=== PATIENT | female | born 1960 | race Asian ===

== ENCOUNTER 2021-04-10 07:33 | Outpatient (REF) | payer OTHER, SELFPAY ==
[2021-04-10 08:01] LABS: Binax Internal Control QC Valid; Binax Now Covid-19 Ag Negative (Negative)
== END 2021-04-10 07:34 | disposition home or self-care (01) ==
LOC: HO.LAB 07:33
PROVIDERS: Visit Provider Internal Medicine
DX: Z20.822 Contact with and (suspected) exposure to COVID-19 (principal)
CPT/HCPCS: C9803

== ENCOUNTER 2022-08-17 10:29 | Outpatient (REF) | payer OTHER, SELFPAY ==
[2022-08-17 13:16] LABS: MANUAL DIFF FLAG NO
[2022-08-17 13:20] LABS: Basophils Absolute Auto 0.1 X10*3/uL (0.0-0.2); Basophils Percent Auto 1.1 % (0-2); Eosinophils Absolute Auto 0.3 X10*3/uL (0.0-0.4); Eosinophils Percent Auto 5.1 % (0-4); Hematocrit 42.6 % (37.0-47.0); Hemoglobin 13.8 g/dl (12.0-16.0); Imm Gran Abs Auto 0.01 X10*3/uL (0.00-0.03); Imm Gran Pct Auto 0.2 % (0.0-0.4); Lymphocytes Absolute Auto 2.1 X10*3/uL (1.2-4.9); Lymphocytes Percent Auto 36.3 % (20-40); Mean Corpuscular HGB Conc 32.4 g/dl (31.0-35.0); Mean Corpuscular Hemoglobin 30.1 pg (27.0-33.0); Mean Platelet Volume 10.7 fL (9.4-12.3); Monocytes Absolute Auto 0.4 X10*3/uL (0.1-1.2); Monocytes Percent Auto 7.1 % (2-11); Neutrophils Absolute Auto 2.8 x10*3/uL (2.0-8.3); Neutrophils Percent Auto 50.2 % (45-73); Platelet Count 210 X10*3/uL (160-400); Red Blood Count 4.58 X10*6/uL (4.20-5.50); Red Cell Distribution Width 11.9 % (11.0-16.0); White Blood Count 5.7 X10*3/uL (4.8-10.8)
[2022-08-17 13:48] LABS: Anion Gap 11 (12-20); Blood Urea Nitrogen 20 mg/dL (9-16); Calcium 9.3 mg/dL (8.4-10.2); Carbon Dioxide 24 mmol/L (22-29); Chloride 108 mmol/L (96-108); Estimated Glomerular Filt Rate > 60; Glucose Random 83 mg/dL (60-115); Potassium 4.4 mmol/L (3.3-5.1); Sodium 139 mmol/L (135-145)
[2022-08-17 14:05] LABS: Free T4 (Free Thyroxine) 1.04 ng/dL (0.71-1.85); Thyroid Stimulating Hormone 0.31 uIU/mL (0.32-4.0); Vitamin D 25-OH Total 27.6 ng/mL (>30)
== END 2022-08-17 10:30 | disposition home or self-care (01) ==
LOC: HO.10HDL 10:29
PROVIDERS: Visit Provider Internal Medicine
DX: M85.80 Other specified disorders of bone density and structure, unspecified site (principal); R00.1 Bradycardia, unspecified; Z80.3 Family history of malignant neoplasm of breast
CPT/HCPCS: 36415; 80048; 82306; 84439; 84443; 85025

== ENCOUNTER → 2022-08-18 10:02 | Outpatient (REF) | payer OTHER, SELFPAY ==
--- NOTE | 2022-08-18 10:06 | CA_ITS ---
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 Normal LV systolic function with LVEF of 60-65% with normal filling pattern 2. Mild biatrial enlargement 3. Mild mitral regurgitation 4. Upper limits of normal ascending aortic size 5. Normal RV systolic pressure 6. No gross pericardial effusion Findings Left Ventricle Normal left ventricular size, thickness, and systolic function. The visually estimated ejection fraction is between 60-65%. Spectral Doppler is indicative of a normal filling pattern. Peak GLS is -23.1%, within normal limits. Right Ventricle Normal right ventricular cavity size and systolic function. Atria The left atrium is mildly dilated. Interatrial shunt cannot be excluded. The right atrium is mildly dilated. Aortic Valve Normal aortic valve structure and function. There is no aortic valve stenosis. There is no aortic valve regurgitation. Mitral Valve Normal mitral valve structure and function. There is mild mitral valve regurgitation. There is no mitral valve stenosis. Pulmonic Valve The pulmonic valve is likely normal. There is mild pulmonic valve regurgitation. Tricuspid Valve Normal tricuspid valve structure. There is trace tricuspid valve regurgitation. The right ventricular systolic pressure is normal. The right ventricular systolic pressure is 18 mmHg. Normal right atrial pressure. There is no evidence of pulmonary hypertension. Great Vessels The pulmonary artery was not well visualized. Venous The inferior vena cava is normal in size and collapses greater than 50% with inspiration. Pericardium/Pleural There is no evidence of pericardial effusion. Prior Study Comparison No prior study available for comparison. Measurements 2D Linear Measurements IVSd: 1.11 0.6-0.9/0.6-1.0 cm LVIDd: 4.78 3.9-5.3/4.2-5.9 cm LVIDd Index: 2.85 2.4-3.2/2.2-3.1 cm/m2 LVIDs: 2.79 2.0-3.6 cm LVPWd: 0.56 0.7-1.1 cm LA Diam: 4.00 2.7-3.8/3.0-4.0 cm LAIDs Index: 2.38 1.5-2.3 cm/m2 LV Mass: 164.84 67-162/88-224 g LV Mass Index: 98.12 43-95/49-115 g/m2 LVOT Diam: 2.00 3.0+(-)1.3 cm 2D Systolic Function EF 4C: 65.20 >55% EF 2C: 56.30 >55% EF BiP: 61.00 >55% Mitral Valve MV Pk E: 0.72 MV PK A: 0.42 MV Decel Time: 177.00 E/A: 1.70 E'Lateral: 8.06 E'Medial: 5.17 E/E' Med: 13.80 E/E' Lat: 8.90 PHT: 52.00 MVA PHT: 4.23 Decel Hunt: 4.03 Aortic Valve AoV Pk Yousif: 1.39 AoV Pk Grad: 8.00 NADER: 2.73 LVOT LVOT Pk Yousif: 1.18 LVOT Mn Yousif: 0.76 LVOT VTI: 0.30 LVOT Pk Grad: 6.00 LVOT Mn Grad: 3.00 LVOT Diam: 2.00 LVOT Area: 3.14 Diastolic Function MV Pk E: 0.72 MV Pk A: 0.42 E/A: 1.70 E'Medial: 5.17 E/E' Med: 13.80 E' Laterial: 8.06 E/E' Lat: 8.90 Right Ventricle TAPSE (mm): 26.50 TVS' Yousif: 11.90 Tricuspid Valve TR Pk Yousif: 1.94 TR Pk Grad: 15.00 RA Press: 3.00 RVSP: 18.00 Great Vessels Aorta Sinus of Valsalva: 3.30 2.0-3.5 cm Ao Asc: 3.50 2.1-3.4 cm Pulmonary Veins Pulm Vein S/D 1.50 Pulmonary Valve PV Pk Yousif: 0.80 Peak PV Grad: 3.00 Updated in Other Vendor System with Status of Final Juventino Prater MD electronically signed on 08/19/2022 10:45:19 AM with status of Final
== END ==
LOC: HO.CARD 10:02
PROVIDERS: PCP Internal Medicine; Visit Provider Internal Medicine
DX: R00.1 Bradycardia, unspecified (principal)
CPT/HCPCS: 93306; 93356

== ENCOUNTER 2023-05-18 21:24 | Emergency (ER) | payer OTHER, SELFPAY ==
[2023-05-18 21:53] VITALS: BP 136/84; PULSE 56; RESP 16; TEMP 36.5; O2SAT 98; BMI 30.8
--- NOTE | 2023-05-18 22:44 | ED.GENADULT ---
HPI - General Adult General Chief complaint: General Medical Stated complaint: deep cut on finger Time Seen by Provider: 05/18/23 22:25 Source: patient and family Mode of arrival: ambulatory Limitations: no limitations History of Present Illness HPI narrative: 62-year-old female with no significant past medical history presents emergency department, where their , for complaints of a laceration on her right index finger from a Deanna. She reports she was cooking dinner roughly 1 hour prior to arrival when she cut the finger on the inside of a metal can. She reports she applied a pressure dressing which helped control bleeding. She states that it has been greater than 10 years since she received a tetanus shot. She denies any paresthesias, weakness, or change in range of motion of the finger or hand. Pertinent positives and negatives discussed in HPI Related Data Allergies Allergy/AdvReac Type Severity Reaction Status Date / Time No Known Allergies Allergy Unverified 12/06/19 16:20 [No Known Allergies*] Review of Systems Review of Systems: Yes all other systems are reviewed and are negative [facility] Social History Social History Advance Directives: No Advance Directives Information Provided: No Physical Exam ED Vital Signs: Vital Signs - 24 hr 05/18/23 21:53 Temperature 97.7 F Pulse Rate 56 Respiratory Rate 16 Blood Pressure 136/84 Pulse Oximetry 98 Oxygen Delivery Method Room Air BMI result Body Mass Index 30.8 Nursing notes and vital signs reviewed. GENERAL APPEARANCE: A&0 x 4, generally well appearing, no acute distress HENMT: Normal to inspection, atraumatic, face symmetrical. Normal external ears, nose, and oropharynx clear. EYE: PERRLA, EOM intact, structures appear normal NECK: Supple without stiffness or restricted ROM. HEART: Normal rate and regular rhythm, normal S1/S2, no M/R/G LUNGS: LS CTA, moving air well. Able to speak in complete sentences. No crackles, wheezes, or rhonchi auscultated BACK: No CVAT, no obvious deformity EXTREMITIES: Moving all extremities without difficulty. Normal capillary refill. 1.3 cm linear laceration right index finger NEUROLOGICAL: Alert and oriented, moving all 4 extremities with equal strength. CN not formally tested but appearing grossly intact. Observed to ambulate with normal gait. Cognition normal SKIN: Warm and dry without any lesions, rash, or visible sores Medications Administered Discontinued Medications Generic Name Dose Route Start Last Admin Trade Name Freq PRN Reason Stop Dose Admin Diphtheria/Tetanus/Acell Pertussis 0.5 ml 05/18/23 22:36 05/18/23 22:49 Diphth,Pertus(Acell),Tet Adult 0.5 Ml Syringe IM 05/18/23 22:37 0.5 ml .ONCE ONE Administration Lidocaine HCl 30 ml 05/18/23 22:36 05/18/23 22:50 Lidocaine Hcl 1 % 20 Ml Vial INFILTRATI 05/18/23 22:37 30 ml ONCE ONE Administration Procedures Laceration Laceration 1: Site: other (index finger ) Side (If applicable): right Size (cm): 1.3 Description: linear Depth: simple, single layer Local Anesthetic: lidocaine 1% Amount of anesthesia used (mL): 6 Pre-repair: wound explored and irrigated extensively Skin layer closed with: nylon Size (cm): 4-0 Number of sutures: 3 Technique: simple, interrupted Medical Decision Making Medical Decision Making MDM Narrative: Old records reviewed for previous imaging, lab studies, ECGs, and notes. Patient was assessed the emergency department with no acute distress or toxicity noted. Tdap ordered. Finger cleansed and closed with suture. Pt tolerated without incident. Patient educated to return in 7-10 days for suture removal and to keep the wound clean and dry to prevent infection. Patient is safe for discharge at this time with plan for [id number] Tylenol and/or NSAID such as ibuprofen or naproxen for fever/discomfort with dosing as per packaging. HPI, PE, diagnostics, and plan discussed with patient and family with no unanswered questions at this time. Strict return precautions given to return to the emergency department with new, worsening, or concerning emergent symptoms. Recommended to follow-up with there primary care provider in 24-48 hours for further treatment and management. Differential Diagnosis Differential Diagnoses: The differential diagnosis associated with the presentation includes But not limited to laceration, abrasion, contusion Discharge Plan Discharge Clinical Impression: Laceration of finger, index Patient Disposition: Home, Self-Care Instructions: Finger Laceration (ED) Additional Instructions: Please return in 7-10 days for suture removal Referrals: Wilfredo Graff MD [Primary Care Provider] - Stand Alone Forms: Work/School Release Print Language: Romanian
[2023-05-18] MEDS: Diphth,Pertus(ACell),Tet Adult 0.5 ML SYRINGE IM (22:49)
[2023-05-18] MEDS: Lidocaine HCl 1 % 20 ML VIAL 30 ML INFILTRATI (22:50)
== END 2023-05-18 23:28 | disposition home or self-care (01) ==
PROVIDERS: Emergency Provider Emergency Medicine Emergency Medical Services; PCP Internal Medicine
DX: S61.210A Laceration without foreign body of right index finger without damage to nail, initial encounter (principal); W26.8XXA Contact with other sharp object(s), not elsewhere classified, initial encounter; Y93.G3 Activity, cooking and baking; Y92.9 Unspecified place or not applicable; Y99.9 Unspecified external cause status
CPT/HCPCS: 12001; 90471; 90715; 99282; 99284

== ENCOUNTER 2023-08-02 10:27 | Outpatient (REF) | payer OTHER, SELFPAY ==
[2023-08-02 11:09] LABS: MANUAL DIFF FLAG NO
[2023-08-02 11:15] LABS: Basophils Absolute Auto 0.1 X10*3/uL (0.0-0.2); Basophils Percent Auto 1.4 % (0-2); Eosinophils Absolute Auto 0.2 X10*3/uL (0.0-0.4); Eosinophils Percent Auto 4.9 % (0-4); Hematocrit 41.5 % (37.0-47.0); Hemoglobin 13.8 g/dl (12.0-16.0); Lymphocytes Absolute Auto 1.4 X10*3/uL (1.2-4.9); Lymphocytes Percent Auto 37.7 % (20-40); Mean Corpuscular HGB Conc 33.3 g/dl (31.0-35.0); Mean Corpuscular Hemoglobin 30.3 pg (27.0-33.0); Mean Corpuscular Volume 91.2 fL (80.0-98.0); Mean Platelet Volume 10.6 fL (9.4-12.3); Monocytes Absolute Auto 0.3 X10*3/uL (0.1-1.2); Monocytes Percent Auto 7.6 % (2-11); Neutrophils Absolute Auto 1.8 x10*3/uL (2.0-8.3); Neutrophils Percent Auto 48.4 % (45-73); Platelet Count 202 X10*3/uL (160-400); Red Blood Count 4.55 X10*6/uL (4.20-5.50); Red Cell Distribution Width 12.2 % (11.0-16.0); White Blood Count 3.7 X10*3/uL (4.8-10.8)
[2023-08-02 11:47] LABS: Anion Gap 14 (12-20); Blood Urea Nitrogen 17 mg/dL (9-16); Calcium 9.1 mg/dL (8.4-10.2); Carbon Dioxide 23 mmol/L (22-29); Chloride 108 mmol/L (96-108); Cholesterol 164 mg/dL (<200); Estimated Glomerular Filt Rate > 60; Glucose Random 103 mg/dL (60-115); Potassium 3.9 mmol/L (3.3-5.1); Sodium 141 mmol/L (135-145)
== END 2023-08-02 10:28 | disposition home or self-care (01) ==
LOC: HO.10HDL 10:27
PROVIDERS: Visit Provider Internal Medicine
DX: M85.80 Other specified disorders of bone density and structure, unspecified site (principal)
CPT/HCPCS: 36415; 80048; 82465; 85025

== ENCOUNTER 2024-07-20 15:26 | Outpatient (AMB) | payer OTHER, SELFPAY ==
--- OUTSIDE RECORDS SUMMARY | 2024-07-20 15:28 | XMS_ITS | Clinical Summary ---
Author Organization [facility] Address [address] [place] [address] Care Team Providers Care Supervisor Costuming Name Role Phone Unavailable Primary Care Provider Unavailabl e Social History Tobacco Use Types Packs/Day Years Used Date Smoking Tobacco: Never Assessed Sex and Gender Information Value Date Recorded Sex Assigned at Not on file Gender Identity Not on file Sexual Orientation Not on file Plan of Treatment Not on file
--- NOTE | 2024-07-20 15:43 | A.OFFPC_ITS ---
Vital Signs 07/20/24 15:47 Height 5 ft Weight 70.76 kg BMI 30.5 BP 128/70 Blood Pressure Location Rt brachial Position Sitting Pulse 57 Pulse Source Pulse Oximeter Temp 97.7 F Temp Source Axillary Pulse Oximetry (%) 98 Oxygen Delivery Method Room Air Intake Visit Reasons: Annual - see comments Subway Guard Required: No Accompanied by: Self / Same As Patient Allergies No Known Allergies [No Known Allergies*] Allergy (Verified 07/20/24 15:44) Medication List - Last Reconciled 07/20/24 by NEHEMIAS Davis cholecalciferol (vitamin D3) 50 mcg PO DAILY Tobacco use date assessed: 07/20/24 Dental Screening Dental Screen Date: 07/20/24 Did you have a dental visit in the last 12 months?: Yes Did you have a dental problem in the last 6 months where you did not have access to dental care?: No HPI HPI Comments History of Present Illness Details 63-year-old female [facility] for annual physical exam. Past medical history is significant for an asymptomatic bradycardia with normal echocardiogram. She has no complaints today. She has never been a smoker no regular alcohol use or drug use. She is due for screening colonoscopy in [facility] of this year. She is overdue for screening mammogram, last performed 04/20/2023 at [facility] and was benign. She reports last Pap smear was in 2020, report not available. 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 She is and recently became a grandmother. She does follow a healthy diet and is physically active, dedicated 30 minutes per day to exercise. She is taking calcium and vitamin-D supplements. We did review last labs including CBC, TSH, total cholesterol, and BNP. [facility] Surgical History History of colonoscopy (~03/04/15) Family History Mother Breast cancer Lung cancer HTN (hypertension) Father HTN (hypertension) Gout Brother Mental health disorder Social History Housing: House Patient Tobacco Use Status: Never used Tobacco e-Cigarette/Vaping Use: Never Used service: No Current occupational status: employed Cognitive needs: No Hearing needs: No Vision needs: No Questionnaire PHQ-9 Over the last 2 weeks, how often have you been bothered by any of the following problems? 1. Little interest or pleasure in doing things: not at all 2. Feeling down, depressed, or hopeless: not at all 3. Trouble falling or staying asleep, or sleeping too much: not at all 4. Feeling tired or having little energy: not at all 5. Poor appetite or overeating: not at all 6. Feeling bad about yourself - or that you are a failure or have let yourself or your family down: not at all 8. Moving or speaking so slowly that other people could have noticed. Or the opposite - being so fidgety or restless that you have been moving around a lot more than usual: not at all 9. Thoughts that you would be better off or of hurting yourself in some way: not at all Source: Developed by Drs. London Mcmanus, Jo Stokes, David Rucker and colleagues, with an educational nika from [employer]. Thrive Questionnaire Date Thrive assessed: 07/20/24 I am a: Patient Within the past 12 months, did the food you bought not last and you didn't have the money to get more?: Never true Within the past 12 months, did you worry whether your food would run out before you got money to buy more?: Never true Do you have trouble paying for medicines?: No Do you have trouble getting transportation to medical appointments?: No Do you have trouble paying your heating and electricity bill?: No Do you have trouble taking care of your child, family member or friend?: No Do you have trouble with day-to-day activities such as bathing, preparing meals, shopping, managing finances, etc.?: No Are you currently unemployed and looking for a job?: No Are you interested in more education?: No THRIVE Score: 0 AUDIT C Alcohol Use Questionnaire (AUDIT-C) 1. How often do you have a drink containing alcohol?: Monthly or less 2. How many drinks containing alcohol do you have on a typical day when you are drinking?: 1 or 2 3. How often do you have six or more drinks on one occasion?: Less than monthly Total Score: 2 DANETTE-7 AMB Questionnaire DANETTE-7 Date DANETTE - 7 assessed: 07/20/24 Feeling nervous, anxious, or on edge: 0 = Not at all Not being able to stop or control worryin = Not at all Worrying too much about different things: 0 = Not at all Trouble relaxin = Not at all Being so restless that it is hard to sit still: 0 = Not at all Becoming easily annoyed or irritable: 0 = Not at all Feeling afraid as if something awful might happen: 0 = Not at all Total DANETTE-7 score (0-4 normal; 5-9 mild; 10-14 moderate; 15-21 severe): 0 Source: Developed by Drs. London Mcmanus, Jo Stokes, David Rucker and colleagues, with an educational nika from [employer]. Review of Systems Const Details: General: No fevers, malaise, unintentional weight loss HEENT: No blurred vision, diplopia. No sore throat, nasal congestion, rhinorrhea, sinus pain, ear pain. Reports dry itchy eyes Cardiovascular: No chest pain, palpitations, or leg edema Respiratory: No shortness of breath, wheezing, cough GI: No dysphagia. No abdominal pain, nausea, vomiting, diarrhea, constipation, melena, hematochezia : No dysuria, hematuria, increased urinary frequency, decreased urinary output MSK: No myalgia, back pain Neuro: No headaches, weakness, paresthesias Skin: No rashes or lesions Psych: No anxiety or depression Physical exam (Primary Care) Vital Signs: Last Vital Signs Temp 97.7 F 07/20/24 15:47 Pulse 57 07/20/24 15:47 BP 128/70 07/20/24 15:47 Pulse Ox 98 07/20/24 15:47 Oxygen Delivery Method Room Air 07/20/24 15:47 BMI result Body Mass Index 30.5 Tobacco/Smoking Status: Tobacco use Status Tobacco use date assessed 07/20/24 07/20/24 15:45 Patient Tobacco Use Status Never used Tobacco 07/20/24 15:45 e-Cigarette/Vaping Use Never Used 07/20/24 15:45 Thrive Assessment: Date of Thrive Assessment Date Thrive assessed 07/20/24 07/20/24 15:45 Const General: healthy appearing, comfortable, no acute distress and alert Orientation/consciousness: patient oriented x3 Limitations: no limitations HENMT Head: Yes normocephalic and Yes atraumatic Ears: hearing grossly normal bilaterally, external ears normal, TM normal on the right (Unable to visualize due to cerumen impaction), TM normal on the left and unable to visualize TM (Due to cerumen impaction) on the right General nose exam: Normal external nose present and Normal septum present Face and sinus: Yes face symmetric Mouth: tongue normal, oropharynx normal and moist mucous membranes Throat: Yes posterior oropharynx normal Eyes General: appearance normal, both eyes and all related structures Sclerae: sclerae normal EOM: EOMs intact bilaterally Neck Neck: Yes normal visual inspection and Yes no lymphadenopathy Thyroid: Thyroid normal Chest Chest palpation & inspection: normal inspection of the chest Resp Effort & Inspection: normal respiratory effort and able to speak in complete sentences Auscultation: clear to auscultation bilaterally Cardio Rate: regular rate and bradycardic Rhythm: regular rhythm Heart sounds: S1 normal heart sound present, S2 normal heart sound present and no murmurs Peripheral pulses: radial pulses present GI Inspection: Yes normal to inspection Palpation (GI): Soft to palpation, nontender, no guarding and not rigid Auscultation: normal bowel sounds Skin General skin exam: no rashes or lesions noted Neuro General: patient oriented x3 and CN's II-XI intact bilaterally Gait exam (Neuro): Normal gait present Motor exam (neuro): 5/5 motor strength present throughout Deep tendon reflexes (DTR's): Right patellar reflex intensity grade: 2+ and Left patellar reflex intensity grade: 2+ Plantar Reflex Responses: equivocal: right and left Extrem General: Yes normal to inspection, Yes no pedal edema and Yes no calf tenderness Psych Appearance: well kempt Speech and movement: Normal speech and movement present Affect: normal affect Coding Level of Care Code New Pt Prev Care 40-64y(49546) Diagnoses Routine medical exam Z00.00 Assessment & Plan Assessment & Plan (1) Routine medical exam: Code(s): Z00.00 - Encounter for general adult medical examination without abnormal findings Category: Medical Plan: Well appearing, no concerns at this time. Continue with regular weight bearing exercise and healthy diet. Labs reviewed. CBC, BMP, TSH w/ reflex free T4 ordered. External mammogram ordered at patient's request. Due for colonoscopy February of this year, will call to schedule. Continue following with [employer]ESS [employer]TER. Debrox ordered for cerumen impaction R ear. Continue calcium and vitamin D, DEXA scan as indicated, recommend age 65. Continue oral antihistamines as needed for allergy symptoms. Plan - Schedule your mammogram for March 2023 at [facility]. - Plan your colonoscopy post your planned travel. - Continue [id number] antihistamines for her allergies. - Use Debrox ear drops for ear wax management. - Maintain your vitamin D and calcium intake. - Discuss Pap smear with women's health for an upcoming appointment. - Arrange for blood test follow-up including CBC, BMP, and thyroid function. - Notify the office if you experience new symptoms, need assistance or clarifica tion regarding your prescriptions. Follow up in 1 year Orders: Orders MM screening mammo BI Today Z00.00 - Encounter for general adult medical examination without abnormal findings, Z12.31 - Encounter for screening mammogram for malignant neoplasm of breast Basic Metabolic Panel Today Z00.00 - Encounter for general adult medical examination without abnormal findings Complete Blood Count Auto Diff Today Z00.00 - Encounter for general adult medical examination without abnormal findings TSH reflex Free T4 Today Z00.00 - Encounter for general adult medical examination without abnormal findings Medications: New carbamide peroxide 6.5% (Debrox) 5 drps otic (ear) right DAILY 5 days 15 mL 0RF
[2024-07-20 15:47] VITALS: BP 128/70; PULSE 57; TEMP 36.5; O2SAT 98; BMI 30.5
== END 2024-07-20 16:33 | disposition home or self-care (01) ==
LOC: HO.HMCHD 15:27
PROVIDERS: PCP Physician Assistant; Visit Provider Internal Medicine
DX: Z00.00 Encounter for general adult medical examination without abnormal findings (principal)

== ENCOUNTER → 2024-07-20 15:26 | Outpatient (BNVA) | payer OTHER, SELFPAY | PROVIDERS: PCP Physician Assistant; Visit Provider Internal Medicine | DX: Z00.00 Encounter for general adult medical examination without abnormal findings (principal) | CPT/HCPCS: 96127; 99386 ==